=== PATIENT | male | born 1940 | race Caucasian/White ===

== ENCOUNTER 2019-05-26 10:59 | Day surgery (SDC) | payer OTHER ==
[~2019-05-26 10:59] MED LIST: CHONDR SU A NA/HYALUR INTRAOC KIT (SURGICARE) ONE; DORZOLAMIDE HCL 2%/TIMOLOL MALEAT 0.5% OPH SOLN 10 ML OD PRN; EPINEPHRINE INJ/PF 1 MG/1 ML AMPULE ONE; KETOROLAC TROMETHAMINE 0.45% 4 DROP/0.4 ML DROPERETTE OD PRN; LIDOCAINE 1%/PHENYLEPHRINE 1.5% 1 ML VIAL ONE
[2019-05-26] MEDS: BESIFLOXACIN HCL 0.6% OPH SUSP 5 ML BOTTLE OD PRN ×3 (11:35→12:44)
[2019-05-26] MEDS: CYCLOPENTOLATE 0.2%/PHENYLEPHRINE 1% OPH SOLN 2 ML OD PRN ×3 (11:35→11:55)
[2019-05-26] MEDS: TROPICAMIDE 1% OPH SOLN 3 ML OD PRN ×3 (11:35→11:55)
[2019-05-26] MEDS: TETRACAINE HCL 0.5% OPH SOLN 4 ML OD PRN ×3 (11:35→12:19)
[2019-05-26] MEDS ORDERED: MIDAZOLAM 2 MG/2 ML INJ ONE (12:00)
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
== END 2019-05-26 13:33 | disposition home or self-care (01) ==
LOC: SC 10:59
PROVIDERS: ATTEND Internal Medicine
DX: H25.11 Age-related nuclear cataract, right eye (principal); H57.03 Miosis; Z96.1 Presence of intraocular lens; I10 Essential (primary) hypertension; Z79.01 Long term (current) use of anticoagulants; Z79.899 Other long term (current) drug therapy
CPT/HCPCS: 00142; 66984; V2632; J2250; J3490 ×2; A9270; J0171; J2370; 142

== ENCOUNTER 2019-11-23 09:38 | Inpatient (IN) | payer OTHER, MEDICARE ==
[2019-11-23 10:18] LABS: VENOUS BLOOD BASE EXCESS -4.3 mmol/L; VENOUS BLOOD HCO3 22.2 mmol/L (20-32); VENOUS BLOOD PCO2 46.1 mmHg (35-63); VENOUS BLOOD PH 7.3 (7.30-7.42)
[2019-11-23 10:32] LABS: ABSOLUTE BASOPHILS # (AUTO) 0.1 10^3/uL (0.0-0.2); ABSOLUTE LYMPHOCYTES (AUTO) 1.7 10^3/uL (0.5-4.7); ABSOLUTE MONOCYTES (AUTO) 0.6 10^3/uL (0.1-1.4); ABSOLUTE NEUT (AUTO) 10.5 10^3/uL (1.7-8.2); BASOPHILS % (AUTO) 1.1 % (0-2); EOSINOPHILS % (AUTO) 0.3 % (0-6); HEMATOCRIT 24.2 % (37.9-51.0); HEMOGLOBIN 8.3 g/dL (13.5-17.0); LYMPHOCYTES % (AUTO) 13.4 % (13-45); MEAN CORPUSCULAR HEMOGLOBIN 30.8 pg (27.0-33.4); MEAN CORPUSCULAR HGB CONC 34.5 g/dL (32.0-36.0); MEAN CORPUSCULAR VOLUME 89 fl (80-97); MONOCYTES % (AUTO) 4.6 % (3-13); PLATELET COUNT 249 10^3/uL (150-450); RED CELL DISTRIBUTION WIDTH 14.2 % (11.5-14.0); SEGMENTED NEUTROPHILS % (AUTO) 80.6 % (42-78); TOTAL CELLS COUNTED % (AUTO) 100 %
[2019-11-23 10:35] LABS: ALBUMIN 3.1 g/dL (3.5-5.0); ALKALINE PHOSPHATASE 44 U/L (38-126); ANION GAP 12 (5-19); ASPARTATE AMINO TRANSFERASE 19 U/L (17-59); BILIRUBIN,DIRECT 0.2 mg/dL (0.0-0.4); BILIRUBIN,TOTAL 1.1 mg/dL (0.2-1.3); BLOOD UREA NITROGEN 82 mg/dL (7-20); CARBON DIOXIDE 22 mmol/L (22-30); CHLORIDE 102 mmol/L (98-107); GLUCOSE 174 mg/dL (75-110); POTASSIUM 4.5 mmol/L (3.6-5.0); TOTAL PROTEIN 6.1 g/dL (6.3-8.2)
[2019-11-23 11:07] LABS: INTERNATIONAL RATION (INR) 5.71; PROTHROMBIN TIME 53.2 SEC (11.4-15.4)
--- NOTE | 2019-11-23 11:19 | ER Document Report ---
ED General - General Chief Complaint: Rectal Bleeding Stated Complaint: POSSIBLE SEPSIS Time Seen by Provider: 11/23/19 10:02 Primary Care Provider: NICHELLE VERMA MD [Primary Care Provider] - Follow up as needed Mode of Arrival: Medic Information source: Patient, Relative Notes: Patient is a 79-year-old male presenting to the emergency department chief complaint of lightheaded and dizziness. Patient states that he has been progressively worsening over several days and states that his stool has been dark/black for approximately 2 weeks. At time of presentation patient is alert and oriented answering questions appropriately. Patient is pale and has a baseline rate on monitor of atrial fibrillation rate of 88 bpm. Family states that the patient has been getting weaker for several days but pretty much keeps to himself they also state that he has not eaten in a couple of days. There is no report of obvious sick contacts no travel history and no trauma history. TRAVEL OUTSIDE OF THE [place] IN LAST 30 DAYS: No - HPI Onset: Last week Onset/Duration: Gradual, Worse Quality of pain: Achy Severity: Mild Pain Level: 1 Associated symptoms: Nausea, Shortness of breath, Weakness Exacerbated by: Movement, Walking Relieved by: Denies Similar symptoms previously: Yes Recently seen / treated by doctor: No - Related Data Allergies/Adverse Reactions: No Known Allergies Allergy (Verified 11/23/19 09:45) Past Medical History - General Information source: Patient, Relative - Social History Smoking Status: Never Smoker Frequency of alcohol use: None Drug Abuse: None Lives with: Family Family History: Reviewed & Not Pertinent Patient has suicidal ideation: Yes Patient has homicidal ideation: No - Past Medical History Cardiac Medical History: Reports: Hx Hypertension Denies: Hx Coronary Artery Disease, Hx Heart Attack Pulmonary Medical History: Denies: Hx Asthma, Hx Bronchitis, Hx COPD, Hx Pneumonia Neurological Medical History: Denies: Hx Cerebrovascular Accident, Hx Seizures GI Medical History: Denies: Hx Hepatitis, Hx Hiatal Hernia, Hx Ulcer Musculoskeletal Medical History: Reports Hx Arthritis - Knees, hands Infectious Medical History: Denies: Hx Hepatitis Past Surgical History: Reports: Hx Orthopedic Surgery - carpel tunnel. Denies: Hx Open Heart Surgery, Hx Pacemaker - Immunizations Hx Diphtheria, Pertussis, Tetanus Vaccination: - Unsure Review of Systems - Review of Systems Notes: REVIEW OF SYSTEMS: CONSTITUTIONAL : Per HPI EENT: Denies eye, ear, throat, or mouth pain or symptoms. Denies nasal or sinus congestion. CARDIOVASCULAR: Denies chest pain. RESPIRATORY: Denies cough, cold, or chest congestion. Denies shortness of breath, difficulty breathing, or wheezing. GASTROINTESTINAL: Per HPI GENITOURINARY: Denies difficulty urinating, painful urination, burning, frequency, or blood in urine. MUSCULOSKELETAL: Denies neck or back pain or joint pain or swelling. SKIN: Per HPI HEMATOLOGIC : Denies easy bruising or bleeding. NEUROLOGICAL: Denies altered mental status or loss of consciousness. Denies headache. Denies weakness or paralysis or loss of use of either side. Denies problems with gait or speech. Denies sensory or motor loss. PSYCHIATRIC: Denies suicidal or homicidal ideations 10 Systems are negative unless otherwise specified above Physical Exam - Vital signs Vitals: Resp Pulse Ox 20 100 11/23/19 09:44 11/23/19 09:44 - Notes Notes: PHYSICAL EXAMINATION: GENERAL: Patient is a pleasant 79-year-old male in no acute distress HEAD: Atraumatic, normocephalic. EYES: Pupils equal round and reactive to light, extraocular movements intact, sclera anicteric, conjunctiva are normal. ENT: nares patent, oropharynx clear without exudates. Dry mucous membranes. NECK: Normal range of motion, supple without lymphadenopathy, no appreciable JVD LUNGS: Lungs clear to auscultation bilaterally and equal. No wheezes rales or rhonchi. Poor excursion HEART: Regular rate however atrial fibrillation ABDOMEN: Soft, nontender, normal bowel sounds. No guarding, no rebound. No masses appreciated. EXTREMITIES: Active full range of motion, no pitting or edema. No cyanosis. 2+ pulses x4 NEUROLOGICAL: No focal neurological deficits. Moves all extremities spontaneously and on command. SKIN: Warm, Dry, and intact. Normal turgor, no rashes or lesions noted. Patient is pallorous Course - Re-evaluation Re-evalutation: 11/23/19 12:52 Patient has been maintained on a mixing picker tender while in emergency department. Patient is remained stable without any signs of decompensation. At time of presentation patient was initially evaluated and labs EKG and radiologic studies were initiated. These studies have been reviewed by me patient has received initially 1 L bolus normal saline and will receive a second. He is receiving Protonix IV per protocol. Because of the elevated INR patient will be given 10 units of vitamin K subcu. I have spoken with the family they are aware and agreeable with admission. I spoke with general surgery who will consult secondary to upper GI bleed. Hospitalists have been consulted and are agreeable with admission. - Vital Signs Vital signs: Temp Pulse Resp BP Pulse Ox 97.2 F 93 14 107/63 100 11/23/19 09:47 11/23/19 09:47 11/23/19 11:31 11/23/19 11:31 11/23/19 11:31 - Laboratory Result Diagrams: 11/23/19 09:45 11/23/19 09:45 Laboratory results interpreted by me: 11/23/19 11/23/19 11/23/19 09:45 09:45 09:45 WBC 13.0 H RBC 2.70 L Hgb 8.3 L Hct 24.2 L RDW 14.2 H Absolute Neuts (auto) 10.5 H Seg Neutrophils % 80.6 H PT INR Sodium 136.3 L BUN 82 H Creatinine 1.91 H Est GFR ( Amer) 41 L Est GFR (MDRD) Non-Af 34 L Glucose 174 H Lactic Acid 3.0 H Total Protein 6.1 L Albumin 3.1 L 11/23/19 10:47 WBC RBC Hgb Hct RDW Absolute Neuts (auto) Seg Neutrophils % PT 53.2 H* INR 5.71 H* Sodium BUN Creatinine Est GFR ( Amer) Est GFR (MDRD) Non-Af Glucose Lactic Acid Total Protein Albumin - Diagnostic Test Radiology reviewed: Reports reviewed - EKG Interpretation by Me Rate: Normal Rhythm: Arrthymia When compared to previous EKG there are: No significant change Critical Care Note - Critical Care Note Total time excluding time spent on procedures (mins): 40 Comments: Please allow 40 minutes of critical care time exclusive of separately billable procedures for multiple re-evaluations, medical management, consultation with patient family surgical list and hospitalist in care for this critically ill patient. Discharge - Discharge Clinical Impression: Upper GI bleed, Supratherapeutic INR, Generalized weakness, Renal insufficiency Anemia Qualifiers: Anemia type: iron deficiency Iron deficiency anemia type: chronic blood loss Qualified Code(s): D50.0 - Iron deficiency anemia secondary to blood loss (chronic) Atrial fibrillation Qualifiers: Atrial fibrillation type: longstanding persistent Qualified Code(s): I48.11 - Longstanding persistent atrial fibrillation Condition: Fair Disposition: ADMITTED INPATIENT Admitting Provider: Darrell (Hospitalist) Unit Admitted: IMCU Referrals: NICHELLE VERMA MD [Primary Care Provider] - Follow up as needed
[2019-11-23] MEDS ORDERED: PHYTONADIONE INJ 10 MG/1 ML AMPULE SUBCUT ONE (12:00)
--- NOTE | 2019-11-23 12:01 | RADIOLOGY REPORT (SQ) ---
EXAM DESCRIPTION: CHEST SINGLE VIEW COMPLETED DATE/TIME: 11/23/2019 11:45 am REASON FOR STUDY: sob COMPARISON: 06/28/2015 EXAM PARAMETERS: NUMBER OF VIEWS: One view. TECHNIQUE: Single frontal radiographic view of the chest acquired. RADIATION DOSE: NA LIMITATIONS: None. FINDINGS: LUNGS AND PLEURA: No opacities, masses or pneumothorax. No pleural effusion. MEDIASTINUM AND HILAR STRUCTURES: No masses. Contour normal. HEART AND VASCULAR STRUCTURES: Heart normal in size. Normal vasculature. BONES: No acute findings. HARDWARE: None in the chest. OTHER: No other significant finding. IMPRESSION: NO ACUTE RADIOGRAPHIC FINDING IN THE CHEST. TECHNICAL DOCUMENTATION: JOB ID: [id number] 2010 [employer]- All Rights Reserved Reading location - IP/workstation name: [email or web address]
[2019-11-23] MEDS ORDERED: PANTOPRAZOLE SODIUM 40 MG VIAL IV PRN (12:02)
[2019-11-23] MEDS ORDERED: PANTOPRAZOLE SODIUM 40 MG VIAL IV ONE (12:02)
[2019-11-23] MEDS ORDERED: NORMAL SALINE 1000 ML 1,000 ML IV ONE ×2 (12:04→14:24)
[2019-11-23] MEDS ORDERED: ACETAMINOPHEN 325 MG TABLET PO PRN (14:58)
[2019-11-23] MEDS ORDERED: DEXTROSE 40% GEL 15 GM TUBE PO PRN ×2 (14:58)
[2019-11-23] MEDS ORDERED: PROMETHAZINE HCL INJ 25 MG/1 ML VIAL IV PRN (14:58)
[2019-11-23] MEDS ORDERED: MAGNESIUM HYDROXIDE SUSP 30 ML UDCUP PO PRN (14:58)
[2019-11-23] MEDS ORDERED: TEMAZEPAM 7.5 MG CAPSULE PO PRN (14:58)
[2019-11-23] MEDS ORDERED: DEXTROSE 50%-WATER 25 GM/50 ML DISP.SYRIN IV PRN ×2 (14:58)
[2019-11-23] MEDS ORDERED: GLUCAGON,HUMAN RECOMB 1 MG INJ SUBCUT PRN (14:58)
[2019-11-23] MEDS ORDERED: ONDANSETRON HCL INJ/PF 4 MG/2 ML SDV IV PRN (14:58)
[2019-11-23] MEDS ORDERED: IPRATROPIUM/ALBUTEROL 0.5-2.5 MG/3 ML AMPUL NEB PRN (14:58)
[2019-11-23] MEDS ORDERED: OXYCODONE-ACETAMINOPHEN 5-325 MG TABLET PO PRN (14:58)
[2019-11-23] MEDS ORDERED: HYDRALAZINE HCL INJ/PF 20 MG/1 ML SDV IV PRN (15:06)
[2019-11-23] MEDS ORDERED: METOPROLOL TARTRATE PF/INJ 5 MG/5 ML SDV IV PRN (15:07)
--- NOTE | 2019-11-23 15:26 | PDOC H&P ---
History of Present Illness Admission Date/PCP: 11/23/19 13:05 NICHELLE VERMA MD History of Present Illness: JOSETTE EISENBERG is a 79 year old male past medical history of hypertension, atrial fibrillation on Coumadin, brought to ED by EMS after found in bathroom by family noted to be too weak to get up. Patient is stating that he has noted greenish stool for the last several months which has progressively getting darker and for the last 2 weeks he has noticed that his bowel movements are me lanotic and also noted that he is getting progressively weak and in the last several days he has been having very low appetite, low p.o. intake, abdominal fullness, dry heaves and nausea. Patient is stating that today he was having dry heaves and felt like he was vomiting, went to the restroom and he felt dizzy and lightheaded and sat on the door and was feeling too weak to get up. Patient denies loss of consciousness or any trauma, and remembers everything pre-and post incident. In ED he was found to be hypotensive, tachycardic, with low hemoglobin supratherapeutic INR and guaiac positive stool. Hospital was consulted for admission. Past Medical History Cardiac Medical History: Reports: Hypertension Denies: Coronary Artery Disease, Myocardial Infarction Pulmonary Medical History: Denies: Asthma, Bronchitis, Chronic Obstructive Pulmonary Disease (COPD), Pneumonia Neurological Medical History: Denies: Seizures GI Medical History: Denies: Hepatitis, Hiatal Hernia Musculoskeltal Medical History: Reports: Arthritis - Knees, hands Hematology: Denies: Anemia, Sickle Cell Disease Past Surgical History Past Surgical History: Reports: Orthopedic Surgery - carpel tunnel Denies: Pacemaker Social History Lives with: Family Smoking Status: Never Smoker Family History Family History: Reviewed & Not Pertinent Parental Family History Reviewed: Yes Children Family History Reviewed: Yes Sibling(s) Family History Reviewed.: Yes Medication/Allergy Home Medications: Naproxen Sodium [Aleve] 660 mg PO DAILY 01/31/16 Losartan/Hydrochlorothiazide [Hyzaar 100-12.5 Tablet] 1 each PO DAILY 04/15/19 Warfarin Sodium 2 mg PO QHS 04/15/19 Atorvastatin Calcium [Lipitor 10 mg Tablet] 10 mg PO QHS 11/23/19 Allergies/Adverse Reactions: No Known Allergies Allergy (Verified 11/23/19 09:45) Review of Systems Review of Systems: as per hpi Physical Exam Vital Signs: Temp Pulse Resp BP Pulse Ox 97.2 F 93 27 H 152/74 H 98 11/23/19 09:47 11/23/19 09:47 11/23/19 14:31 11/23/19 14:31 11/23/19 14:31 Intake & Output 11/22/19 11/23/19 11/24/19 06:59 06:59 06:59 Intake Total 1000 Balance 1000 Weight 111.5 kg General appearance: PRESENT: obese, other - Pale. Head exam: PRESENT: atraumatic, normocephalic Respiratory exam: PRESENT: clear to auscultation trent. ABSENT: rales, rhonchi, wheezes Cardiovascular exam: PRESENT: irregular rhythm, tachycardia. ABSENT: diastolic murmur, rubs, systolic murmur GI/Abdominal exam: PRESENT: normal bowel sounds, soft. ABSENT: distended, guarding, mass, organolmegaly, rebound, tenderness Neurological exam: PRESENT: alert, awake, oriented to person, oriented to place, oriented to time, oriented to situation, CN II-XII grossly intact. ABSENT: motor sensory deficit Skin exam: PRESENT: pallor Results Laboratory Results: 11/23/19 09:45 11/23/19 09:45 11/23/19 11/23/19 11/23/19 09:45 09:45 09:45 WBC 13.0 H RBC 2.70 L Hgb 8.3 L Hct 24.2 L MCV 89 MCH 30.8 MCHC 34.5 RDW 14.2 H Plt Count 249 Seg Neutrophils % 80.6 H VBG pH 7.30 VBG pCO2 46.1 VBG HCO3 22.2 VBG Base Excess -4.3 Sodium 136.3 L Potassium 4.5 Chloride 102 Carbon Dioxide 22 Anion Gap 12 BUN 82 H Creatinine 1.91 H Est GFR ( Amer) 41 L Glucose 174 H Lactic Acid Calcium 9.0 Total Bilirubin 1.1 AST 19 Alkaline Phosphatase 44 Total Protein 6.1 L Albumin 3.1 L Blood Type Antibody Screen 11/23/19 11/23/19 11/23/19 09:45 09:45 12:50 WBC RBC Hgb Hct MCV MCH MCHC RDW Plt Count Seg Neutrophils % VBG pH VBG pCO2 VBG HCO3 VBG Base Excess Sodium Potassium Chloride Carbon Dioxide Anion Gap BUN Creatinine Est GFR ( Amer) Glucose Lactic Acid 3.0 H 2.5 H Calcium Total Bilirubin AST Alkaline Phosphatase Total Protein Albumin Blood Type O POSITIVE Antibody Screen NEGATIVE 11/23/19 09:45 Troponin I < 0.012 Impressions: Chest X-Ray 11/23/19 11:24 IMPRESSION: NO ACUTE RADIOGRAPHIC FINDING IN THE CHEST. Assessment and Plan - Diagnosis (1) Upper GI bleed Is this a current diagnosis for this admission?: Yes Plan: Denies any history of GI malignancy, GERD or gastric ulcers. Home medications are Coumadin and naproxen. This is likely due to Coumadin toxicity complicated by chronic NSAID use. Hemoglobin on admission 8.2. Actual hemoglobin might be even lower and falsely elevated elevated due to hemoconcentration due to dehydration. Will transfuse 2 PRBC. Admit to IMCU, monitor H&H, volume resuscitation guided by volume status, hold anticoagulants, avoid NSAIDs, supportive transfusions, vitamin K, PT/INR, consult gastroenterology for possible upper and lower GI endoscopy. (2) Anemia Qualifiers: Other causes of anemia: acute posthemorrhagic Is this a current diagnosis for this admission?: Yes Plan: Acute blood loss anemia most likely due to upper GI bleed. Plan of care as per #1. (3) Pre-syncope Is this a current diagnosis for this admission?: Yes Plan: Most likely due to severe anemia and volume depletion. Patient endorsing low p.o. intake and low appetite and progressive weakness for the last several days. Denies any chest pain, palpitation or any shortness of breath. Denies any loss of consciousness, any trauma or focal neurological deficits. Troponins negative. EKG no acute changes. Admit to telemetry, volume resuscitation, monitor vitals, fall, seizure and aspiration precautions. (4) Hypotension Qualifiers: Hypotension type: orthostatic hypotension Qualified Code(s): I95.1 - Orthostatic hypotension Is this a current diagnosis for this admission?: Yes Plan: Orthostatic hypotension most likely due to low p.o. intake and volume depletion. Admit to telemetry, volume resuscitation guided by volume status, monitor vitals. (5) Acute kidney injury superimposed on CKD Is this a current diagnosis for this admission?: Yes Plan: Prerenal. Most likely low p.o. intake complicated by NSAID use. Creatinine on admission 1.91. Baseline creatinine 1.3. Cautious volume resuscitation guided by volume status. Avoid nephrotoxic meds. Monitor electrolytes and volume status. Replace electrolytes as needed. BMP tomorrow. (6) Atrial fibrillation Qualifiers: Atrial fibrillation type: longstanding persistent Qualified Code(s): I48.11 - Longstanding persistent atrial fibrillation Is this a current diagnosis for this admission?: Yes Plan: History of chronic persistent A. fib. Anticoagulated with Coumadin. Not on beta-blockers. Hold anticoagulation due to acute GI bleed. Low-dose beta-ally uptitrate as tolerated. I have discussed risk and benefit of long-term anticoagulation with patient and his who both agreed to hold Coumadin until patient is discharged and seen by his PCP as outpatient. (7) Generalized weakness Is this a current diagnosis for this admission?: Yes Plan: Most likely due to anemia and low p.o. intake. Plan as per above. (8) Supratherapeutic INR Is this a current diagnosis for this admission?: Yes Plan: INR on admission 5.71. 1 dose of vitamin K in ED. Admit to telemetry. Monitor for bleeding. Daily INR. Hold anticoagulation. (9) Lactic acidosis Is this a current diagnosis for this admission?: Yes Plan: Likely due to hypotension caused by low p.o. intake and GI bleed starvation ketosis No sign of active infection sepsis or SIRS. Trend lactic acid. Aggressive volume resuscitation guided by volume status. Indication for IV antibiotics at this moment.
[2019-11-23] MEDS ORDERED: NORMAL SALINE 250 ML IV PRN ×2 (15:27)
[2019-11-23] MEDS: DEXTROSE 5%-NORMAL SALINE 1,000 ML IV PRN ×2 (16:13→23:30)
--- NOTE | 2019-11-23 18:23 | EKG REPORT ---
SEVERITY:- ABNORMAL ECG - ATRIAL FIBRILLATION IVCD, CONSIDER ATYPICAL RBBB BORDERLINE ST DEPRESSION, LATERAL LEADS : Confirmed by: Shasta Erazo MD 23-Nov-2019 18:22:49
[2019-11-24] MEDS ORDERED: INFLUENZA QUAD (6MOS+) 2019-20 VAC 0.5 ML SYR IM ONE (00:58)
[2019-11-24] MEDS: METOPROLOL TARTRATE 25 MG TABLET PO SCH ×3 (02:00→21:02)
[2019-11-24] MEDS: ATORVASTATIN CALCIUM 10 MG TABLET PO SCH ×2 (02:02→21:03)
[2019-11-24] MEDS: DEXTROSE 5%-NORMAL SALINE 1,000 ML IV PRN ×2 (03:55→11:06)
[2019-11-24 05:13] LABS: HEMATOCRIT 20.5 % (37.9-51.0); MEAN CORPUSCULAR HEMOGLOBIN 31.7 pg (27.0-33.4); MEAN CORPUSCULAR HGB CONC 35.5 g/dL (32.0-36.0); MEAN CORPUSCULAR VOLUME 89 fl (80-97); PLATELET COUNT 149 10^3/uL (150-450); RED BLOOD COUNT 2.29 10^6/uL (4.35-5.55); RED CELL DISTRIBUTION WIDTH 14.6 % (11.5-14.0); WHITE BLOOD COUNT 8.5 10^3/uL (4.0-10.5)
[2019-11-24 05:17] LABS: HEMOGLOBIN 7.3 g/dL (13.5-17.0)
[2019-11-24 05:22] LABS: INTERNATIONAL RATION (INR) 4.31; PROTHROMBIN TIME 42.5 SEC (11.4-15.4)
[2019-11-24 05:29] LABS: ALBUMIN 2.3 g/dL (3.5-5.0); ALKALINE PHOSPHATASE 26 U/L (38-126); ANION GAP 5 (5-19); ASPARTATE AMINO TRANSFERASE 14 U/L (17-59); BILIRUBIN,DIRECT 0.1 mg/dL (0.0-0.4); BLOOD UREA NITROGEN 69 mg/dL (7-20); CALCIUM 7.6 mg/dL (8.4-10.2); CARBON DIOXIDE 21 mmol/L (22-30); CHLORIDE 113 mmol/L (98-107); GLUCOSE 116 mg/dL (75-110); POTASSIUM 4.1 mmol/L (3.6-5.0); TOTAL PROTEIN 4.3 g/dL (6.3-8.2)
--- NOTE | 2019-11-24 06:06 | PDOC CONSULTATION ---
Consultation Consult Date: 11/24/19 Provider Consulted: SURGICAL SURGICALIST Consult reason:: GI bleeding History of Present Illness Admission Date/PCP: 11/23/19 13:05 NICHELLE VERMA MD History of Present Illness: JOSETTE EISENBERG is a 79 year old male seen in consultation at the request of the hospitalist service. This patient takes Coumadin at home for anticoagulation. Today he presents with weakness, dizziness, fatigue, shortness of breath, melanotic stools, orthostasis, and a supratherapeutic INR. Upon my evaluation, the patient appears somewhat confused. He is a very poor historian. He denies any abdominal pain or discomfort. He denies hematemesis or hematochezia. He does report melena. The patient reports that he had "scope tests" done 2 months ago here in [place]. I do not have these records to review. The patient began having symptoms yesterday at home. He presented to the emergency department for evaluation, where he was found to be anemic, and his INR supratherapeutic. The patient was admitted to the hospital and given vitamin K. Nothing makes his symptoms better or worse. He denies any overt chest pain, headache, blurry vision. The patient does take Aleve every day for back and leg pain. He denies use of steroids, nicotine, alcohol, or large amounts of caffeine. Past Medical History Cardiac Medical History: Reports: Hypertension Denies: Coronary Artery Disease, Myocardial Infarction Pulmonary Medical History: Denies: Asthma, Bronchitis, Chronic Obstructive Pulmonary Disease (COPD), Pneumonia Neurological Medical History: Denies: Seizures GI Medical History: Denies: Hepatitis, Hiatal Hernia Musculoskeltal Medical History: Reports: Arthritis - Knees, hands Hematology: Denies: Anemia, Sickle Cell Disease Past Surgical History Past Surgical History: Reports: Orthopedic Surgery - carpel tunnel Denies: Pacemaker Social History Lives with: Family Smoking Status: Never Smoker Hx Recreational Drug Use: No Hx Prescription Drug Abuse: No Family History Family History: Reviewed & Not Pertinent Parental Family History Reviewed: Yes Children Family History Reviewed: Yes Sibling(s) Family History Reviewed.: Yes Medication/Allergy Home Medications: Naproxen Sodium [Aleve] 660 mg PO DAILY 01/31/16 Losartan/Hydrochlorothiazide [Hyzaar 100-12.5 Tablet] 1 each PO DAILY 04/15/19 Warfarin Sodium 2 mg PO QHS 04/15/19 Atorvastatin Calcium [Lipitor 10 mg Tablet] 10 mg PO QHS 11/23/19 Allergies/Adverse Reactions: No Known Allergies Allergy (Verified 11/23/19 09:45) Review of Systems Constitutional: PRESENT: fatigue, weakness. ABSENT: anorexia Eyes: ABSENT: visual disturbances Ears: ABSENT: hearing changes Nose, Mouth, and Throat: ABSENT: mouth pain, sore throat Cardiovascular: ABSENT: chest pain Respiratory: PRESENT: dyspnea - Mild. ABSENT: cough Gastrointestinal: PRESENT: melena. ABSENT: abdominal pain, bloating, hematemesi s, hematochezia, nausea, vomiting Genitourinary: ABSENT: dysuria Musculoskeletal: PRESENT: back pain Integumentary: ABSENT: pruritus, rash Neurological: PRESENT: weakness Psychiatric: ABSENT: anxiety, depression Endocrine: ABSENT: cold intolerance, heat intolerance Hematologic/Lymphatic: PRESENT: easy bleeding, easy bruising Physical Exam Vital Signs: Temp Pulse Resp BP Pulse Ox 97.8 F 100 20 112/49 L 100 11/23/19 23:37 11/23/19 23:37 11/23/19 23:37 11/23/19 23:37 11/23/19 23:37 Intake & Output 11/22/19 11/23/19 11/24/19 06:59 06:59 06:59 Intake Total 2874 Balance 2874 Weight 111.5 kg General appearance: PRESENT: cooperative, obese, other - Pale appearing Head exam: PRESENT: atraumatic, normocephalic Eye exam: PRESENT: EOMI, PERRLA. ABSENT: scleral icterus Mouth exam: PRESENT: moist, neck supple Neck exam: ABSENT: meningismus, tenderness, thyromegaly, tracheal deviation Respiratory exam: PRESENT: unlabored. ABSENT: chest wall tenderness, tachypnea, wheezes Cardiovascular exam: ABSENT: tachycardia Pulses: PRESENT: normal radial pulses GI/Abdominal exam: PRESENT: soft. ABSENT: distended, guarding, rigid, tenderness Rectal exam: PRESENT: deferred Extremities exam: ABSENT: clubbing Musculoskeletal exam: ABSENT: deformity Neurological exam: PRESENT: alert, awake, other - Appears mildly confused. Has difficulty with specifics related to his medical care, locations, people's names. Psychiatric exam: ABSENT: agitated, anxious, depressed Focused psych exam: ABSENT: delusional Skin exam: PRESENT: pallor. ABSENT: cyanosis, erythema, jaundice Results Laboratory Results: 11/23/19 09:45 11/23/19 09:45 11/23/19 11/23/19 11/23/19 09:45 09:45 09:45 WBC 13.0 H RBC 2.70 L Hgb 8.3 L Hct 24.2 L MCV 89 MCH 30.8 MCHC 34.5 RDW 14.2 H Plt Count 249 Seg Neutrophils % 80.6 H VBG pH 7.30 VBG pCO2 46.1 VBG HCO3 22.2 VBG Base Excess -4.3 Sodium 136.3 L Potassium 4.5 Chloride 102 Carbon Dioxide 22 Anion Gap 12 BUN 82 H Creatinine 1.91 H Est GFR ( Amer) 41 L Glucose 174 H Lactic Acid Calcium 9.0 Total Bilirubin 1.1 AST 19 Alkaline Phosphatase 44 Total Protein 6.1 L Albumin 3.1 L Blood Type Antibody Screen 11/23/19 11/23/19 11/23/19 09:45 09:45 12:50 WBC RBC Hgb Hct MCV MCH MCHC RDW Plt Count Seg Neutrophils % VBG pH VBG pCO2 VBG HCO3 VBG Base Excess Sodium Potassium Chloride Carbon Dioxide Anion Gap BUN Creatinine Est GFR ( Amer) Glucose Lactic Acid 3.0 H 2.5 H Calcium Total Bilirubin AST Alkaline Phosphatase Total Protein Albumin Blood Type O POSITIVE Antibody Screen NEGATIVE 11/23/19 16:14 WBC RBC Hgb Hct MCV MCH MCHC RDW Plt Count Seg Neutrophils % VBG pH VBG pCO2 VBG HCO3 VBG Base Excess Sodium Potassium Chloride Carbon Dioxide Anion Gap BUN Creatinine Est GFR ( Amer) Glucose Lactic Acid 1.8 Calcium Total Bilirubin AST Alkaline Phosphatase Total Protein Albumin Blood Type Antibody Screen 11/23/19 09:45 Troponin I < 0.012 Impressions: Chest X-Ray 11/23/19 11:24 IMPRESSION: NO ACUTE RADIOGRAPHIC FINDING IN THE CHEST. Assessment & Plan - Diagnosis (1) GI bleeding Qualifiers: GI bleed type/associated pathology: melena Qualified Code(s): K92.1 - Melena Is this a current diagnosis for this admission?: Yes - Plan Summary Plan Summary: This is a 79-year-old male with GI bleeding. His INR is supratherapeutic. He does take Aleve every day. It is likely that his source of bleeding is in his upper GI tract, however with a supratherapeutic INR it could be anywhere from mouth to anus. The patient denies hematochezia. He was given vitamin K yesterday, however if life-threatening bleeding occurs, FFP is a much faster alternative. The patient reports having "scope tests" 2 months ago here in [place]. I will have the nursing staff investigate this and request these records. If the patient had a normal colonoscopy several months ago, it would not be beneficial to repeat his colonoscopy in such a short timeframe. I recommend reversal of his supratherapeutic INR first. If this fails to stop his bleeding, therapeutic upper endoscopy can be performed. Stop NSAIDs. Start PPI and Carafate. Surgery will follow.
[2019-11-24] MEDS ORDERED: NORMAL SALINE 250 ML IV PRN ×2 (08:33)
--- NOTE | 2019-11-24 10:29 | PDOC PROGRESS REPORT ---
Subjective Progress Note for:: 11/24/19 Subjective:: JOSETTE EISENBERG is a 79 year old male past medical history of hypertension, atrial fibrillation on Coumadin, brought to ED by EMS after found in bathroom by family noted to be too weak to get up. Patient is stating that he has noted greenish stool for the last several months which has progressively getting darker and for the last 2 weeks he has noticed that his bowel movements are melanotic and also noted that he is getting progressively weak and in the last several days he has been having very low appetite, low p.o. intake, abdominal fullness, dry heaves and nausea. Patient is stating that today he was having dry heaves and felt like he was vomiting, went to the restroom and he felt dizzy and lightheaded and sat on the door and was feeling too weak to get up. Patient denies loss of consciousness or any trauma, and remembers everything pre-and post incident. In ED he was found to be hypotensive, tachycardic, with low hemoglobin supratherapeutic INR and guaiac positive stool. Hospital was consulted for admission. 11/24/2019. No acute events overnight. Follow-up hemoglobin noted to be dropping however patient has not had any bowel movement and I do not believe if he is acutely bleeding. Patient is stating that he is feeling weak otherwise denies any fever, chills, nausea, vomiting, diarrhea and urinary symptoms. Patient's upper GI endoscopy is on hold given his elevated INR. Reason For Visit: UPPER GL BLEED, PRESYNCOPE, DEHYDRATION, ATRIAL Physical Exam Vital Signs: Temp Pulse Resp BP Pulse Ox 98.1 F 97 18 122/54 L 100 11/24/19 09:48 11/24/19 09:48 11/24/19 09:48 11/24/19 09:48 11/24/19 09:48 Intake & Output 11/23/19 11/24/19 11/25/19 06:59 06:59 06:59 Intake Total 4004 350 Output Total 1060 Balance 2944 350 Weight 108.8 kg General appearance: PRESENT: no acute distress, well-developed, well-nourished Head exam: PRESENT: atraumatic, normocephalic Respiratory exam: PRESENT: clear to auscultation trent. ABSENT: rales, rhonchi, wheezes Cardiovascular exam: PRESENT: irregular rhythm. ABSENT: diastolic murmur, rubs, systolic murmur GI/Abdominal exam: PRESENT: normal bowel sounds, soft. ABSENT: distended, guarding, mass, organolmegaly, rebound, tenderness Neurological exam: PRESENT: alert, awake, oriented to person, oriented to place, oriented to time, oriented to situation, CN II-XII grossly intact. ABSENT: motor sensory deficit Results Laboratory Results: 11/24/19 04:43 11/24/19 04:43 11/23/19 11/23/19 11/23/19 09:45 09:45 09:45 WBC 13.0 H RBC 2.70 L Hgb 8.3 L Hct 24.2 L MCV 89 MCH 30.8 MCHC 34.5 RDW 14.2 H Plt Count 249 Seg Neutrophils % 80.6 H Sodium 136.3 L Potassium 4.5 Chloride 102 Carbon Dioxide 22 Anion Gap 12 BUN 82 H Creatinine 1.91 H Est GFR ( Amer) 41 L Glucose 174 H Lactic Acid 3.0 H Calcium 9.0 Total Bilirubin 1.1 AST 19 Alkaline Phosphatase 44 Total Protein 6.1 L Albumin 3.1 L Blood Type Antibody Screen 11/23/19 11/23/19 11/23/19 09:45 12:50 16:14 WBC RBC Hgb Hct MCV MCH MCHC RDW Plt Count Seg Neutrophils % Sodium Potassium Chloride Carbon Dioxide Anion Gap BUN Creatinine Est GFR ( Amer) Glucose Lactic Acid 2.5 H 1.8 Calcium Total Bilirubin AST Alkaline Phosphatase Total Protein Albumin Blood Type O POSITIVE Antibody Screen NEGATIVE 11/24/19 11/24/19 04:43 04:43 WBC 8.5 RBC 2.29 L Hgb 7.3 L Hct 20.5 L MCV 89 MCH 31.7 MCHC 35.5 RDW 14.6 H Plt Count 149 L Seg Neutrophils % Sodium 139.3 Potassium 4.1 Chloride 113 H Carbon Dioxide 21 L Anion Gap 5 BUN 69 H Creatinine 1.47 H Est GFR ( Amer) 56 L Glucose 116 H Lactic Acid Calcium 7.6 L Total Bilirubin 2.0 H AST 14 L Alkaline Phosphatase 26 L Total Protein 4.3 L Albumin 2.3 L Blood Type Antibody Screen 11/23/19 09:45 Troponin I < 0.012 Impressions: Chest X-Ray 11/23/19 11:24 IMPRESSION: NO ACUTE RADIOGRAPHIC FINDING IN THE CHEST. Assessment and Plan - Diagnosis (1) Upper GI bleed Is this a current diagnosis for this admission?: Yes Plan: Denies any history of GI malignancy, GERD or gastric ulcers. Home medications are Coumadin and naproxen. This is likely due to Coumadin toxicity complicated by chronic NSAID use. Hemoglobin on admission 8.2. Hemoglobin has dropped to 7.3 this is likely due to hemodilution as he appeared to be very dehydrated on admission. Status post 2 PRBC transfusion on 11/23/2019. We will transfuse 2 more units and 1 unit of FFP. Received 10 mg of vitamin K on 11/23/2019. GI consulted. Upper GI endoscopy is on hold pending correction of INR. Continue monitor H&H, volume resuscitation guided by volume status, hold anticoagulants, avoid NSAIDs, supportive transfusions, PT/INR (2) Anemia Qualifiers: Other causes of anemia: acute posthemorrhagic Is this a current diagnosis for this admission?: Yes Plan: Acute blood loss anemia most likely due to upper GI bleed. Plan of care as per #1. (3) Pre-syncope Is this a current diagnosis for this admission?: Yes Plan: Denies any palpitation, lightheadedness, dizziness or syncope since admission. Most likely due to severe anemia and volume depletion. Patient endorsing low p.o. intake and low appetite and progressive weakness for the last several days. Denies any chest pain, palpitation or any shortness of breath. Denies any loss of consciousness, any trauma or focal neurological deficits. Troponins negative. EKG no acute changes. Continue to telemetry, volume resuscitation, monitor vitals, fall, seizure and aspiration precautions. (4) Hypotension Qualifiers: Hypotension type: orthostatic hypotension Qualified Code(s): I95.1 - Orthostatic hypotension Is this a current diagnosis for this admission?: Yes Plan: Normotensive. Euvolemic. Orthostatic hypotension most likely due to low p.o. intake and volume depletion. Continue telemetry, volume resuscitation guided by volume status, monitor vitals. (5) Acute kidney injury superimposed on CKD Is this a current diagnosis for this admission?: Yes Plan: Improving. Prerenal. Most likely low p.o. intake complicated by NSAID use. Creatinine on admission 1.91. Baseline creatinine 1.3. Cautious volume resuscitation guided by volume status. Avoid nephrotoxic meds. Monitor electrolytes and volume status. Replace electrolytes as needed. BMP tomorrow. (6) Atrial fibrillation Qualifiers: Atrial fibrillation type: longstanding persistent Qualified Code(s): I48.11 - Longstanding persistent atrial fibrillation Is this a current diagnosis for this admission?: Yes Plan: Rate controlled. Not anticoagulated. History of chronic persistent A. fib. Anticoagulated with Coumadin. Hold anticoagulation due to acute GI bleed. Low-dose beta-alyl uptitrate as tolerated. I have discussed risk and benefit of long-term anticoagulation with patient and his who both agreed to hold Coumadin until patient is discharged and seen by his PCP as outpatient. (7) Generalized weakness Is this a current diagnosis for this admission?: Yes Plan: Improving. Most likely due to anemia and low p.o. intake. Plan as per above. (8) Supratherapeutic INR Is this a current diagnosis for this admission?: Yes Plan: INR 4.7. INR on admission 5.71. Received 1 dose of vitamin K in the ED. We will give 1 unit of FFP. Continue monitor for bleeding. Daily INR. Hold anticoagulation. (9) Lactic acidosis Is this a current diagnosis for this admission?: Yes Plan: Resolved. ALT likely due to hypotension caused by low p.o. intake and GI bleed starvation ketosis No sign of active infection sepsis or SIRS. Continue volume resuscitation guided by volume status. Indication for IV antibiotics at this moment.
[2019-11-24] MEDS: SUCRALFATE 1 GM TABLET PO SCH ×3 (10:51→21:02)
[2019-11-24] MEDS: NORMAL SALINE 500 ML with OCTREOTIDE ACETATE 500 MCG IV PRN ×2 (17:32)
[2019-11-24] MEDS ORDERED: PANTOPRAZOLE SODIUM 80 MG in NORMAL SALINE 100 ML IV ONE (18:00)
[2019-11-24 18:14] LABS: HEMATOCRIT 24.7 % (37.9-51.0); HEMOGLOBIN 8.5 g/dL (13.5-17.0); INTERNATIONAL RATION (INR) 2.15; MEAN CORPUSCULAR HEMOGLOBIN 30.1 pg (27.0-33.4); MEAN CORPUSCULAR HGB CONC 34.3 g/dL (32.0-36.0); MEAN CORPUSCULAR VOLUME 88 fl (80-97); PLATELET COUNT 168 10^3/uL (150-450); PROTHROMBIN TIME 24.3 SEC (11.4-15.4); RED BLOOD COUNT 2.82 10^6/uL (4.35-5.55); WHITE BLOOD COUNT 12.4 10^3/uL (4.0-10.5)
[2019-11-24 18:40] LABS: ABSOLUTE LYMPHOCYTES# (MANUAL) 1.7 10^3/uL (0.5-4.7); ANISOCYTOSIS SLIGHT; BASOPHILS % (MANUAL) 1 % (0-2); EOSINOPHILS % (MANUAL) 2 % (0-6); LYMPHOCYTES % (MANUAL) 14 % (13-45); MONOCYTES % (MANUAL) 8 % (3-13); SEGMENTED NEUTROPHILS % (MAN) 75 % (42-78); TOTAL CELLS COUNTED 100
[2019-11-24 18:41] LABS: PLATELET COMMENT ADEQUATE; PLATELET GIANT PRESENT
[2019-11-24] MEDS: NORMAL SALINE 100 ML with PANTOPRAZOLE SODIUM 80 MG IV PRN ×2 (19:34)
[2019-11-24 22:33] LABS: HEMATOCRIT 22.1 % (37.9-51.0); MEAN CORPUSCULAR HGB CONC 35.3 g/dL (32.0-36.0); MEAN CORPUSCULAR VOLUME 88 fl (80-97); PLATELET COUNT 139 10^3/uL (150-450); RED BLOOD COUNT 2.52 10^6/uL (4.35-5.55); WHITE BLOOD COUNT 10.6 10^3/uL (4.0-10.5)
[2019-11-24 22:42] LABS: HEMOGLOBIN 7.8 g/dL (13.5-17.0)
[2019-11-24] MEDS ORDERED: FUROSEMIDE INJ/PF 20 MG/2 ML SDV IV ONE (23:15)
[2019-11-25] MEDS: NORMAL SALINE 100 ML with PANTOPRAZOLE SODIUM 80 MG IV PRN ×4 (05:24→13:17)
[2019-11-25] MEDS ORDERED: NORMAL SALINE 250 ML IV PRN (06:10)
[2019-11-25] MEDS ORDERED: DEXTROSE 40% GEL 15 GM TUBE PO PRN ×2 (06:11)
[2019-11-25] MEDS ORDERED: DEXTROSE 50%-WATER 25 GM/50 ML DISP.SYRIN IV PRN ×2 (06:11)
[2019-11-25] MEDS ORDERED: GLUCAGON,HUMAN RECOMB 1 MG INJ SUBCUT PRN (06:11)
[2019-11-25 06:43] LABS: INTERNATIONAL RATION (INR) 1.72; PROTHROMBIN TIME 20.4 SEC (11.4-15.4)
--- NOTE | 2019-11-25 09:37 | Progress Note ---
Provider Note Provider Note: Spoke with Dr. moreno"s office this morning. Patient had a colonoscopy in December 2018. Findings consistent with 2 small 4 mm polyps in the mid transverse colon that were cold snare removed. Other findings include hemorrhoids. No other findings were noted at the colonoscopy.
--- NOTE | 2019-11-25 09:38 | Progress Note ---
Provider Note Provider Note: Spoke with Dr. Puentes's office. Patient had a colonoscopy in December 2018. Only findings included 2 small 4 mm polyps in the mid transverse colon that were removed with cold forceps. Also documented were hemorrhoids. No other findings were documented.
[2019-11-25] MEDS: SUCRALFATE 1 GM TABLET PO SCH ×2 (10:08→23:36)
[2019-11-25] MEDS: LINEZOLID 600 MG/300 ML RTUPB IV SCH (10:15)
[2019-11-25 12:38] LABS: INTERNATIONAL RATION (INR) 1.49; PROTHROMBIN TIME 18.2 SEC (11.4-15.4)
[2019-11-25] MEDS ORDERED: FENTANYL CITRATE INJ/PF 100 MCG/2 ML AMPUL ONE (12:45)
[2019-11-25] MEDS ORDERED: ONDANSETRON HCL INJ/PF 4 MG/2 ML SDV ONE (12:45)
[2019-11-25] MEDS ORDERED: DIPHENHYDRAMINE HCL 50 MG/ML VIAL ONE (12:45)
[2019-11-25] MEDS ORDERED: MIDAZOLAM 2 MG/2 ML INJ ONE (12:45)
[2019-11-25] MEDS ORDERED: FLUMAZENIL INJ 0.5 MG/5 ML VIAL ONE (12:46)
[2019-11-25] MEDS ORDERED: GLUCAGON,HUMAN RECOMB 1 MG INJ ONE (12:46)
[2019-11-25] MEDS ORDERED: EPINEPHRINE INJ 1 MG/10 ML DISP.SYRIN ONE (12:46)
[2019-11-25] MEDS ORDERED: NALOXONE HCL INJ/PF 0.4 MG/1 ML SDV ONE (12:46)
[2019-11-25] MEDS: NORMAL SALINE 500 ML with OCTREOTIDE ACETATE 500 MCG IV PRN ×2 (13:17)
--- NOTE | 2019-11-25 13:33 | PDOC PROGRESS REPORT ---
Subjective Progress Note for:: 11/25/19 Subjective:: JOSETTE EISENBERG is a 79 year old male past medical history of hypertension, atrial fibrillation on Coumadin, brought to ED by EMS after found in bathroom by family noted to be too weak to get up. Patient is stating that he has noted greenish stool for the last several months which has progressively getting darker and for the last 2 weeks he has noticed that his bowel movements are melanotic and also noted that he is getting progressively weak and in the last several days he has been having very low appetite, low p.o. intake, abdominal fullness, dry heaves and nausea. Patient is stating that today he was having dry heaves and felt like he was vomiting, went to the restroom and he felt dizzy and lightheaded and sat on the door and was feeling too weak to get up. Patient denies loss of consciousness or any trauma, and remembers everything pre-and post incident. In ED he was found to be hypotensive, tachycardic, with low hemoglobin supratherapeutic INR and guaiac positive stool. Hospital was consulted for admission. 11/24/2019. No acute events overnight. Follow-up hemoglobin noted to be dropping however patient has not had any bowel movement and I do not believe if he is acutely bleeding. Patient is stating that he is feeling weak otherwise denies any fever, chills, nausea, vomiting, diarrhea and urinary symptoms. Patient's upper GI endoscopy is on hold given his elevated INR. 11/25/2019. No acute events overnight. Patient comfortably sitting up in apparent distress, has not had any recurrence of his hemoptysis, last bowel movement yesterday, denies any fever, chills, nausea, vomiting, diarrhea, constipation or any urinary symptoms. Patient is scheduled for upper GI endoscopy today. Reason For Visit: UPPER GL BLEED, PRESYNCOPE, DEHYDRATION, ATRIAL Physical Exam Vital Signs: Temp Pulse Resp BP Pulse Ox 97.5 F 65 65 H 114/59 L 98 11/25/19 13:00 11/25/19 13:00 11/25/19 13:00 11/25/19 13:00 11/25/19 13:00 Intake & Output 11/24/19 11/25/19 11/26/19 06:59 06:59 06:59 Intake Total 4004 4628 763 Output Total 1060 700 Balance 2944 3928 763 Weight 108.8 kg 108.1 kg General appearance: PRESENT: no acute distress, well-developed, well-nourished Head exam: PRESENT: atraumatic, normocephalic Respiratory exam: PRESENT: clear to auscultation trent. ABSENT: rales, rhonchi, wheezes Cardiovascular exam: PRESENT: RRR. ABSENT: diastolic murmur, rubs, systolic murmur GI/Abdominal exam: PRESENT: normal bowel sounds, soft. ABSENT: distended, guarding, mass, organolmegaly, rebound, tenderness Neurological exam: PRESENT: alert, awake, oriented to person, oriented to place, oriented to time, oriented to situation, CN II-XII grossly intact. ABSENT: mo tor sensory deficit Results Laboratory Results: 11/24/19 21:57 11/24/19 04:43 11/23/19 11/24/19 11/24/19 09:45 17:36 21:57 WBC 12.4 H 10.6 H RBC 2.82 L 2.52 L Hgb 8.5 L 7.8 L Hct 24.7 L 22.1 L MCV 88 88 MCH 30.1 31.0 MCHC 34.3 35.3 RDW 15.0 H 15.0 H Plt Count 168 139 L Seg Neutrophils % Not Reportable Blood Type O POSITIVE Antibody Screen NEGATIVE 11/23/19 09:45 Blood Blood Culture (PCR) - Final Staphylococcus Species 11/23/19 09:45 Troponin I < 0.012 Impressions: Chest X-Ray 11/23/19 11:24 IMPRESSION: NO ACUTE RADIOGRAPHIC FINDING IN THE CHEST. Assessment and Plan - Diagnosis (1) Upper GI bleed Is this a current diagnosis for this admission?: Yes Plan: Denies any history of GI malignancy, GERD or gastric ulcers. Home medications are Coumadin and naproxen. This is likely due to Coumadin toxicity complicated by chronic NSAID use. Hemoglobin on admission 8.2. Hemoglobin has dropped to 7.3 this is likely due to hemodilution as he appeared to be very dehydrated on admission. Status post 4 PRBC transfusion on 11/23/2019. Received 10 mg of vitamin K on 11/23/2019. Status post 2 FFP transfusion. Scheduled for upper GI endoscopy today. As per surgery note patient has had recent colonoscopy which have been normal. Continue monitor H&H, volume resuscitation guided by volume status, hold anticoagulants, avoid NSAIDs, supportive transfusions, PT/INR (2) Anemia Qualifiers: Other causes of anemia: acute posthemorrhagic Is this a current diagnosis for this admission?: Yes Plan: Acute blood loss anemia most likely due to upper GI bleed. Plan of care as per #1. (3) Pre-syncope Is this a current diagnosis for this admission?: Yes Plan: Denies any palpitation, lightheadedness, dizziness or syncope since admission. Most likely due to severe anemia and volume depletion. Patient endorsing low p.o. intake and low appetite and progressive weakness for the last several days. Denies any chest pain, palpitation or any shortness of breath. Denies any loss of consciousness, any trauma or focal neurological deficits. Troponins negative. EKG no acute changes. Continue to telemetry, volume resuscitation, monitor vitals, fall, seizure and aspiration precautions. (4) Hypotension Qualifiers: Hypotension type: orthostatic hypotension Qualified Code(s): I95.1 - Orthostatic hypotension Is this a current diagnosis for this admission?: Yes Plan: Normotensive. Euvolemic. Orthostatic hypotension most likely due to low p.o. intake and volume depletion. Continue telemetry, volume resuscitation guided by volume status, monitor vitals. (5) Acute kidney injury superimposed on CKD Is this a current diagnosis for this admission?: Yes Plan: Improving. Prerenal. Most likely low p.o. intake complicated by NSAID use. Creatinine on admission 1.91. Baseline creatinine 1.3. Cautious volume resuscitation guided by volume status. Avoid nephrotoxic meds. Monitor electrolytes and volume status. Replace electrolytes as needed. BMP tomorrow. (6) Atrial fibrillation Qualifiers: Atrial fibrillation type: longstanding persistent Qualified Code(s): I48.11 - Longstanding persistent atrial fibrillation Is this a current diagnosis for this admission?: Yes Plan: Rate controlled. Not anticoagulated. History of chronic persistent A. fib. Anticoagulated with Coumadin. Hold anticoagulation due to acute GI bleed. Was started on low-dose beta-blockers however noted to become bradycardic. DC beta-blockers for right now. I have discussed risk and benefit of long-term anticoagulation with patient and his who both agreed to hold Coumadin until patient is discharged and seen by his PCP as outpatient. (7) Generalized weakness Is this a current diagnosis for this admission?: Yes Plan: Improving. Most likely due to anemia and low p.o. intake. Plan as per above. (8) Supratherapeutic INR Is this a current diagnosis for this admission?: Yes Plan: INR WNL today. INR on admission 5.71. Received 1 dose of vitamin K in the ED. Status post FFP transfusion. Continue monitor for bleeding. Daily INR. Hold anticoagulation. (9) Lactic acidosis Is this a current diagnosis for this admission?: Yes Plan: Resolved. ALT likely due to hypotension caused by low p.o. intake and GI bleed starvation ketosis No sign of active infection sepsis or SIRS. Continue volume resuscitation guided by volume status. Indication for IV antibiotics at this moment.
--- NOTE | 2019-11-25 13:57 | Operative Report ---
Nonrecallable Operative Report DATE OF SURGERY: 11/25/19 PREOPERATIVE DIAGNOSIS: GI bleeding POSTOPERATIVE DIAGNOSIS: Pyloric channel ulcers OPERATION: Esophagogastroduodenoscopy SURGEON: LUNA CARRASCO ANESTHESIA: Moderate Sedation TISSUE REMOVED OR ALTERED: None COMPLICATIONS: None ESTIMATED BLOOD LOSS: 0 INTRAOPERATIVE FINDINGS: 2 pyloric channel ulcers approximately 0.3 cm in diameter PROCEDURE: Procedure after appropriate timeout site verification the procedure commenced. Patient was placed in a left lateral decubitus position in the endoscopy suite. The Olympus gastroscope was passed in through the mouth traversed the upper esophageal sphincters into the proximal esophagus and then into the stomach. As we entered the stomach we noted some evidence of old digested blood and mild antral gastritis. As the scope then advanced was advanced to the antrum prior just prior to entering the pylorus there was 2.3 cm ulcers that were noted on the anterior lateral aspect of the distal antrum that were not bleeding. They had a clean ulcer bed. There was no visible vessel. The scope was then passed in through the pylorus into the proximal duodenum as we entered the proximal duodenum there was 2 small approximately 0.5 cm lipomatous lesions on the wall of the duodenum at the left side. Scope was then advanced to the second portion of duodenum that appeared to be normal we then slowly withdrew the scope again back into the antrum noting 2 small ulcers again no evidence of bleeding the scope was then retroflexed and there was no significant hiatal hernia. Scope was then slowly withdrawn into the esophagus distal esophagus appeared to be normal without evidence of significant esophagitis the scope was then slowly withdrawn. Findings 1. 2- 0.3 cm prepyloric ulcers not bleeding. 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 3. No active bleeding at this time. Recommendations Start the patient on Carafate suspension or tablets 1 p.o. every 8 hours along with proton pump inhibitor.
[2019-11-25] MEDS ORDERED: PANTOPRAZOLE SODIUM 40 MG TABLET.DR PO ONE (18:06)
[2019-11-25] MEDS: ATORVASTATIN CALCIUM 10 MG TABLET PO SCH (23:36)
[2019-11-26] MEDS: LINEZOLID 600 MG/300 ML RTUPB IV SCH ×3 (00:06→21:08)
[2019-11-26 05:24] LABS: ABSOLUTE BASOPHILS # (AUTO) 0.1 10^3/uL (0.0-0.2); ABSOLUTE EOSINOPHILS # (AUTO) 0.4 10^3/uL (0.0-0.6); ABSOLUTE LYMPHOCYTES (AUTO) 1.2 10^3/uL (0.5-4.7); ABSOLUTE MONOCYTES (AUTO) 0.5 10^3/uL (0.1-1.4); ABSOLUTE NEUT (AUTO) 4.4 10^3/uL (1.7-8.2); BASOPHILS % (AUTO) 0.8 % (0-2); EOSINOPHILS % (AUTO) 6.2 % (0-6); HEMATOCRIT 28.2 % (37.9-51.0); LYMPHOCYTES % (AUTO) 18.9 % (13-45); MEAN CORPUSCULAR HEMOGLOBIN 31.6 pg (27.0-33.4); MEAN CORPUSCULAR VOLUME 90 fl (80-97); MONOCYTES % (AUTO) 7.7 % (3-13); PLATELET COUNT 137 10^3/uL (150-450); RED BLOOD COUNT 3.13 10^6/uL (4.35-5.55); RED CELL DISTRIBUTION WIDTH 15.6 % (11.5-14.0); SEGMENTED NEUTROPHILS % (AUTO) 66.4 % (42-78); TOTAL CELLS COUNTED % (AUTO) 100 %; WHITE BLOOD COUNT 6.6 10^3/uL (4.0-10.5)
[2019-11-26] MEDS: SUCRALFATE 1 GM TABLET PO SCH ×4 (05:26→21:04)
[2019-11-26] MEDS: PANTOPRAZOLE SODIUM 40 MG TABLET.DR PO SCH ×2 (05:26→17:41)
[2019-11-26 05:33] LABS: HEMOGLOBIN 9.9 g/dL (13.5-17.0); INTERNATIONAL RATION (INR) 1.34; PROTHROMBIN TIME 16.7 SEC (11.4-15.4)
[2019-11-26 05:36] LABS: ANION GAP 5 (5-19); BLOOD UREA NITROGEN 33 mg/dL (7-20); CALCIUM 7.8 mg/dL (8.4-10.2); CARBON DIOXIDE 23 mmol/L (22-30); CHLORIDE 109 mmol/L (98-107); GLUCOSE 119 mg/dL (75-110); POTASSIUM 3.9 mmol/L (3.6-5.0)
[2019-11-26] MEDS ORDERED: FUROSEMIDE INJ/PF 20 MG/2 ML SDV ONE (08:12)
[2019-11-26] MEDS ORDERED: FUROSEMIDE INJ/PF 20 MG/2 ML SDV IV ONE (08:45)
--- NOTE | 2019-11-26 10:51 | PDOC PROGRESS REPORT ---
Subjective Progress Note for:: 11/26/19 Subjective:: JOSETTE EISENBERG is a 79 year old male past medical history of hypertension, atrial fibrillation on Coumadin, brought to ED by EMS after found in bathroom by family noted to be too weak to get up. Patient is stating that he has noted greenish stool for the last several months which has progressively getting darker and for the last 2 weeks he has noticed that his bowel movements are melanotic and also noted that he is getting progressively weak and in the last several days he has been having very low appetite, low p.o. intake, abdominal fullness, dry heaves and nausea. Patient is stating that today he was having dry heaves and felt like he was vomiting, went to the restroom and he felt dizzy and lightheaded and sat on the door and was feeling too weak to get up. Patient denies loss of consciousness or any trauma, and remembers everything pre-and post incident. In ED he was found to be hypotensive, tachycardic, with low hemoglobin supratherapeutic INR and guaiac positive stool. Hospital was consulted for admission. 11/24/2019. No acute events overnight. Follow-up hemoglobin noted to be dropping however patient has not had any bowel movement and I do not believe if he is acutely bleeding. Patient is stating that he is feeling weak otherwise denies any fever, chills, nausea, vomiting, diarrhea and urinary symptoms. Patient's upper GI endoscopy is on hold given his elevated INR. 11/25/2019. No acute events overnight. Patient comfortably sitting up in apparent distress, has not had any recurrence of his hemoptysis, last bowel movement yesterday, denies any fever, chills, nausea, vomiting, diarrhea, constipation or any urinary symptoms. Patient is scheduled for upper GI endoscopy today. 11/26/2019. Patient complaining of generalized weakness, shortness of breath, otherwise alert and oriented in no apparent distress, cooperative with physical examination, denies any nausea vomiting, has not had any bowel movement since yesterday, denies any fever, chest pain, abdominal pain, diarrhea or any urinary symptoms. Reason For Visit: UPPER GL BLEED, PRESYNCOPE, DEHYDRATION, ATRIAL Physical Exam Vital Signs: Temp Pulse Resp BP Pulse Ox 97.4 F 81 16 130/74 H 94 11/26/19 07:52 11/26/19 07:52 11/26/19 07:52 11/26/19 07:52 11/26/19 07:52 Intake & Output 11/25/19 11/26/19 11/27/19 06:59 06:59 06:59 Intake Total 4628 3780 Output Total 700 1790 Balance 3928 1989 Weight 108.1 kg 112.1 kg General appearance: PRESENT: no acute distress, well-developed, well-nourished Head exam: PRESENT: atraumatic, normocephalic Respiratory exam: PRESENT: clear to auscultation trent. ABSENT: rales, rhonchi, wheezes Cardiovascular exam: PRESENT: RRR. ABSENT: diastolic murmur, rubs, systolic murmur GI/Abdominal exam: PRESENT: normal bowel sounds, soft. ABSENT: distended, guarding, mass, organolmegaly, rebound, tenderness Neurological exam: PRESENT: alert, awake, oriented to person, oriented to place, oriented to time, oriented to situation, CN II-XII grossly intact. ABSENT: motor sensory deficit Results Laboratory Results: 11/26/19 04:55 11/26/19 04:55 11/23/19 11/26/19 11/26/19 09:45 04:55 04:55 WBC 6.6 RBC 3.13 L Hgb 9.9 L D Hct 28.2 L MCV 90 MCH 31.6 MCHC 35.0 RDW 15.6 H Plt Count 137 L Seg Neutrophils % 66.4 Sodium 136.9 L Potassium 3.9 Chloride 109 H Carbon Dioxide 23 Anion Gap 5 BUN 33 H Creatinine 1.42 H Est GFR ( Amer) 58 L Glucose 119 H Calcium 7.8 L Magnesium 2.0 Blood Type O POSITIVE Antibody Screen NEGATIVE 11/23/19 09:45 Blood Blood Culture (PCR) - Final Staphylococcus Species 11/23/19 09:45 Troponin I < 0.012 Impressions: Chest X-Ray 11/23/19 11:24 IMPRESSION: NO ACUTE RADIOGRAPHIC FINDING IN THE CHEST. Assessment and Plan - Diagnosis (1) Upper GI bleed Is this a current diagnosis for this admission?: Yes Plan: Resolved. Status post upper GI endoscopy positive for small prepyloric nonbleeding ulcers. Home medications are Coumadin and naproxen. Due to prepyloric ulcers complicated by Coumadin toxicity complicated by chronic NSAID use. Hemoglobin on admission 9.1 Hemoglobin has dropped to 7.3 this is likely due to hemodilution as he appeared to be very dehydrated on admission. Status post 4 PRBC transfusion on 11/23/2019. Received 10 mg of vitamin K on 11/23/2019. Status post 2 FFP transfusion. DC octreotide drip. DC PPI drip. Continue Carafate. Advance diet as tolerated. Continue p.o. PPI. Monitor H&H. Follow-up biopsy result. Will obtain stool H. pylori antigen. (2) Anemia Qualifiers: Other causes of anemia: acute posthemorrhagic Is this a current diagnosis for this admission?: Yes Plan: Acute blood loss anemia most likely due to upper GI bleed. Plan of care as per #1. (3) Pre-syncope Is this a current diagnosis for this admission?: Yes Plan: Denies any palpitation, lightheadedness, dizziness or syncope since admission. Most likely due to severe anemia and volume depletion. Patient endorsing low p.o. intake and low appetite and progressive weakness for the last several days. Denies any chest pain, palpitation or any shortness of breath. Denies any loss of consciousness, any trauma or focal neurological deficits. Troponins negative. EKG no acute changes. Continue to telemetry, volume resuscitation, monitor vitals, fall, seizure and aspiration precautions. (4) Hypotension Qualifiers: Hypotension type: orthostatic hypotension Qualified Code(s): I95.1 - O rthostatic hypotension Is this a current diagnosis for this admission?: Yes Plan: Normotensive. Euvolemic. Orthostatic hypotension most likely due to low p.o. intake and volume depletion. Continue telemetry, volume resuscitation guided by volume status, monitor vitals. (5) Acute kidney injury superimposed on CKD Is this a current diagnosis for this admission?: Yes Plan: Improving. Prerenal. Most likely low p.o. intake complicated by NSAID use. Creatinine on admission 1.91. Baseline creatinine 1.3. Cautious volume resuscitation guided by volume status. Avoid nephrotoxic meds. Monitor electrolytes and volume status. Replace electrolytes as needed. BMP tomorrow. (6) Atrial fibrillation Qualifiers: Atrial fibrillation type: longstanding persistent Qualified Code(s): I48.11 - Longstanding persistent atrial fibrillation Is this a current diagnosis for this admission?: Yes Plan: Rate controlled. Not anticoagulated. History of chronic persistent A. fib. was anticoagulated with Coumadin. Hold anticoagulation due to acute GI bleed. Was started on low-dose beta-blockers however noted to become bradycardic. DC beta-blockers for right now. I have discussed risk and benefit of long-term anticoagulation with patient and his who both agreed to hold Coumadin until patient is discharged and seen by his PCP as outpatient. (7) Generalized weakness Is this a current diagnosis for this admission?: Yes Plan: Improving. Most likely due to anemia and low p.o. intake. Plan as per above. (8) Supratherapeutic INR Is this a current diagnosis for this admission?: Yes Plan: INR WNL today. INR on admission 5.71. Received 1 dose of vitamin K in the ED. Status post FFP transfusion. Continue monitor for bleeding. Daily INR. Hold anticoagulation. (9) Lactic acidosis Is this a current diagnosis for this admission?: Yes Plan: Resolved. ALT likely due to hypotension caused by low p.o. intake and GI bleed starvation ketosis No sign of active infection sepsis or SIRS. Continue volume resuscitation guided by volume status. Indication for IV antibiotics at this moment.
[2019-11-26] MEDS: METOPROLOL TARTRATE 25 MG TABLET PO SCH (20:02)
[2019-11-26] MEDS: ATORVASTATIN CALCIUM 10 MG TABLET PO SCH (21:05)
[2019-11-27 04:45] LABS: HEMATOCRIT 28.7 % (37.9-51.0); HEMOGLOBIN 10.4 g/dL (13.5-17.0); MEAN CORPUSCULAR HEMOGLOBIN 32.6 pg (27.0-33.4); MEAN CORPUSCULAR HGB CONC 36.1 g/dL (32.0-36.0); MEAN CORPUSCULAR VOLUME 90 fl (80-97); PLATELET COUNT 151 10^3/uL (150-450); RED BLOOD COUNT 3.19 10^6/uL (4.35-5.55); RED CELL DISTRIBUTION WIDTH 16.1 % (11.5-14.0); WHITE BLOOD COUNT 5.8 10^3/uL (4.0-10.5)
[2019-11-27 05:04] LABS: ANION GAP 7 (5-19); BLOOD UREA NITROGEN 23 mg/dL (7-20); CALCIUM 7.9 mg/dL (8.4-10.2); CARBON DIOXIDE 25 mmol/L (22-30); CHLORIDE 104 mmol/L (98-107); GLUCOSE 105 mg/dL (75-110); POTASSIUM 3.7 mmol/L (3.6-5.0)
[2019-11-27] MEDS: SUCRALFATE 1 GM TABLET PO SCH (05:18)
[2019-11-27] MEDS: PANTOPRAZOLE SODIUM 40 MG TABLET.DR PO SCH (05:18)
[2019-11-27 10:49] VITALS: BP 104/50
--- NOTE | 2019-11-27 16:39 | PDOC DISCHARGE SUMMARY ---
Impression - Admit/DC Date/PCP Admission Date/Primary Care Provider: 11/23/19 13:05 NICHELLE VERMA MD Discharge Date: 11/27/19 - Discharge Diagnosis (1) Upper GI bleed Is this a current diagnosis for this admission?: Yes (2) Anemia Is this a current diagnosis for this admission?: Yes (3) Pre-syncope Is this a current diagnosis for this admission?: Yes (4) Hypotension Is this a current diagnosis for this admission?: Yes (5) Acute kidney injury superimposed on CKD Is this a current diagnosis for this admission?: Yes (6) Atrial fibrillation Is this a current diagnosis for this admission?: Yes (7) Generalized weakness Is this a current diagnosis for this admission?: Yes (8) Supratherapeutic INR Is this a current diagnosis for this admission?: Yes (9) Lactic acidosis Is this a current diagnosis for this admission?: Yes (10) Coagulase negative Staphylococcus bacteremia Is this a current diagnosis for this admission?: Yes - Additional Information Resuscitation Status: Full Code Discharge Diet: Cardiac Discharge Activity: Activity As Tolerated, Balance Activity w/Rest Referrals: NICHELLE VERMA MD [Primary Care Provider] - Follow up as needed Prescriptions: Losartan Potassium 100 mg PO DAILY 30 Days #30 tablet Amlodipine Besylate [Norvasc 2.5 mg Tablet] 2.5 mg PO DAILY 30 Days #30 tablet Pantoprazole Sodium 40 mg PO DAILY 7 Days #42 tablet. Home Medications: Atorvastatin Calcium [Lipitor 10 mg Tablet] 10 mg PO QHS 11/23/19 Amlodipine Besylate [Norvasc 2.5 mg Tablet] 2.5 mg PO DAILY 30 Days #30 tablet 11/27/19 Losartan Potassium 100 mg PO DAILY 30 Days #30 tablet 11/27/19 Pantoprazole Sodium 40 mg PO DAILY 7 Days #42 tablet. 11/27/19 History of Present Illiness History of Present Illness: JOSETTE EISENBERG is a 79 year old male past medical history of hypertension, atrial fibrillation on Coumadin, brought to ED by EMS after found in bathroom by family noted to be too weak to get up. Patient is stating that he has noted greenish stool for the last several months which has progressively getting darke r and for the last 2 weeks he has noticed that his bowel movements are melanotic and also noted that he is getting progressively weak and in the last several days he has been having very low appetite, low p.o. intake, abdominal fullness, dry heaves and nausea. Patient is stating that today he was having dry heaves and felt like he was vomiting, went to the restroom and he felt dizzy and lightheaded and sat on the door and was feeling too weak to get up. Patient denies loss of consciousness or any trauma, and remembers everything pre-and post incident. In ED he was found to be hypotensive, tachycardic, with low hemoglobin supratherapeutic INR and guaiac positive stool. Hospital was consulted for admission. Hospital Course Hospital Course: (1) Upper GI bleed Resolved. Status post upper GI endoscopy positive for small prepyloric nonbleeding ulcers. Home medications are Coumadin and naproxen. Due to prepyloric ulcers complicated by Coumadin toxicity complicated by chronic NSAID use. Hemoglobin on admission 10.4 on the day of discharge. Received 4 PRBC transfusion on 11/23/2019. Received 10 mg of vitamin K on 11/23/2019. Received 2 FFP transfusion. Was a started on octreotide drip and PPI drip. H. pylori antigen pending at the time of discharge. P.o. tolerant. Normal bowel movement. (2) Anemia Acute blood loss anemia most likely due to upper GI bleed. Plan of care as per #1. (3) Pre-syncope Denied any palpitation, lightheadedness, dizziness or syncope since admission. Most likely due to severe anemia and volume depletion. Patient endorsing low p.o. intake and low appetite and progressive weakness for the last several days. Denied any chest pain, palpitation or any shortness of breath. Denied any loss of consciousness, any trauma or focal neurological deficits. Troponins negative. EKG no acute changes. Admitted to telemetry, started on volume resuscitation, implemented fall, seizure and aspiration precautions. No events during hospitalization. seizure and aspiration precautions. (4) Hypotension Resolved. Normotensive. Euvolemic. Orthostatic hypotension most likely due to low p.o. intake and volume depletion. Admitted to telemetry, started on [place], monitored vitals. (5) Acute kidney injury superimposed on CKD Resolved. Back to baseline. Prerenal. Most likely low p.o. intake complicated by NSAID use. Creatinine on admission 1.91. Baseline creatinine 1.3. Was a started on volume resuscitation guided by volume status. Avoiding nephrotoxic meds. Advised to follow-up with PCP. (6) Atrial fibrillation Rate controlled. Not anticoagulated. History of chronic persistent A. fib. was anticoagulated with Coumadin. DC'd anticoagulation due to acute GI bleed. Was started on low-dose beta-blockers however noted to become bradycardic. DC'd beta-blockers and advised follow-up with PCP and cardiology. I have discussed risk and benefit of long-term anticoagulation with patient and his who both agreed to hold Coumadin until patient is discharged and seen by his PCP as outpatient. (7) Generalized weakness Moderate improvement. Most likely due to anemia and low p.o. intake. Plan as per above. (8) Supratherapeutic INR INR WNL at the time of discharge. Presented with INR of 5.71. Received 1 dose of vitamin K in the ED. Received 2 FFP's. (9) Lactic acidosis Resolved. ALT likely due to hypotension caused by low p.o. intake and GI bleed starvation ketosis No sign of active infection sepsis or SIRS. Started on volume resuscitation guided by volume status. (10) Coagulase negative Staphylococcus bacteremia 1/4 bottles positive for Staphylococcus hominis, likely contamination. Repeat blood cultures negative. Received 5 days of linezolid. Afebrile, WBC WNL at the time of discharge. No sign of active infection. Physical Exam Vital Signs: Temp Pulse Resp BP Pulse Ox 97.9 F 84 19 104/50 L 98 11/27/19 10:43 11/27/19 10:43 11/27/19 10:43 11/27/19 10:43 11/27/19 10:43 Intake & Output 11/26/19 11/27/19 11/28/19 06:59 06:59 06:59 Intake Total 3780 2386 Output Total 1790 2150 Balance 1989 Weight 112.1 kg 113 kg Results Laboratory Results: WBC 5.8 10^3/uL (4.0-10.5) 11/27/19 04:36 RBC 3.19 10^6/uL (4.35-5.55) L 11/27/19 04:36 Hgb 10.4 g/dL (13.5-17.0) L 11/27/19 04:36 Hct 28.7 % (37.9-51.0) L 11/27/19 04:36 MCV 90 fl (80-97) 11/27/19 04:36 MCH 32.6 pg (27.0-33.4) 11/27/19 04:36 MCHC 36.1 g/dL (32.0-36.0) H 11/27/19 04:36 RDW 16.1 % (11.5-14.0) H 11/27/19 04:36 Plt Count 151 10^3/uL (150-450) 11/27/19 04:36 Lymph % (Auto) 18.9 % (13-45) 11/26/19 04:55 [place] % (Auto) 7.7 % (3-13) 11/26/19 04:55 Eos % (Auto) 6.2 % (0-6) H 11/26/19 04:55 Baso % (Auto) 0.8 % (0-2) 11/26/19 04:55 Absolute Neuts (auto) 4.4 10^3/uL (1.7-8.2) 11/26/19 04:55 Absolute Lymphs (auto) 1.2 10^3/uL (0.5-4.7) 11/26/19 04:55 Absolute Monos (auto) 0.5 10^3/uL (0.1-1.4) 11/26/19 04:55 Absolute Eos (auto) 0.4 10^3/uL (0.0-0.6) 11/26/19 04:55 Absolute Basos (auto) 0.1 10^3/uL (0.0-0.2) 11/26/19 04:55 Total Counted 100 11/24/19 17:36 Seg Neutrophils % 66.4 % (42-78) 11/26/19 04:55 Seg Neuts % (Manual) 75 % (42-78) 11/24/19 17:36 Lymphocytes % (Manual) 14 % (13-45) 11/24/19 17:36 Monocytes % (Manual) 8 % (3-13) 11/24/19 17:36 Eosinophils % (Manual) 2 % (0-6) 11/24/19 17:36 Basophils % (Manual) 1 % (0-2) 11/24/19 17:36 Abs Neuts (Manual) 9.3 10^3/uL (1.7-8.2) H 11/24/19 17:36 Abs Lymphs (Manual) 1.7 10^3/uL (0.5-4.7) 11/24/19 17:36 Abs Monocytes (Manual) 1.0 10^3/uL (0.1-1.4) 11/24/19 17:36 Absolute Eos (Manual) 0.2 10^3/uL (0.0-0.6) 11/24/19 17:36 Abs Basophils (Manual) 0.1 10^3/uL (0.0-0.2) 11/24/19 17:36 Giant Platelets PRESENT 11/24/19 17:36 Platelet Comment ADEQUATE 11/24/19 17:36 Anisocytosis SLIGHT 11/24/19 17:36 PT 16.7 SEC (11.4-15.4) H 11/26/19 04:55 INR 1.34 11/26/19 04:55 INR (Anticoag Therapy) Cancelled 11/23/19 09:45 VBG pH 7.30 (7.30-7.42) 11/23/19 09:45 VBG pCO2 46.1 mmHg (35-63) 11/23/19 09:45 VBG HCO3 22.2 mmol/L (20-32) 11/23/19 09:45 VBG Base Excess -4.3 mmol/L 11/23/19 09:45 Sodium 136.0 mmol/L (137-145) L 11/27/19 04:36 Potassium 3.7 mmol/L (3.6-5.0) 11/27/19 04:36 Chloride 104 mmol/L (98-107) 11/27/19 04:36 Carbon Dioxide 25 mmol/L (22-30) 11/27/19 04:36 Anion Gap 7 (5-19) 11/27/19 04:36 BUN 23 mg/dL (7-20) H 11/27/19 04:36 Creatinine 1.31 mg/dL (0.52-1.25) H 11/27/19 04:36 Est GFR ( Amer) > 60 (>60) 11/27/19 04:36 Est GFR (MDRD) Non-Af 53 (>60) L 11/27/19 04:36 Glucose 105 mg/dL (75-110) 11/27/19 04:36 Lactic Acid 1.8 mmol/L (0.7-2.1) 11/23/19 16:14 Calcium 7.9 mg/dL (8.4-10.2) L 11/27/19 04:36 Magnesium 2.0 mg/dL (1.6-2.3) 11/26/19 04:55 Total Bilirubin 2.0 mg/dL (0.2-1.3) H 11/24/19 04:43 Direct Bilirubin 0.1 mg/dL (0.0-0.4) 11/24/19 04:43 Neonat Total Bilirubin Not Reportable 11/24/19 04:43 Neonat Direct Bilirubin Not Reportable 11/24/19 04:43 Neonat Indirect Bili Not Reportable 11/24/19 04:43 AST 14 U/L (17-59) L 11/24/19 04:43 ALT 9 U/L (<50) 11/24/19 04:43 Alkaline Phosphatase 26 U/L (38-126) L 11/24/19 04:43 Troponin I < 0.012 ng/mL 11/23/19 09:45 Total Protein 4.3 g/dL (6.3-8.2) L 11/24/19 04:43 Albumin 2.3 g/dL (3.5-5.0) L 11/24/19 04:43 POC Stool Occult Blood POSITIVE (NEGATIVE) 11/23/19 09:53 Blood Type O POSITIVE 11/23/19 09:45 Blood Type Confirm O POSITIVE 11/23/19 17:11 Antibody Screen NEGATIVE 11/23/19 09:45 Crossmatch See Detail 11/23/19 09:45 11/23/19 09:45 Troponin I < 0.012 Impressions: Chest X-Ray 11/23/19 11:24 IMPRESSION: NO ACUTE RADIOGRAPHIC FINDING IN THE CHEST. Stroke Is this a Stroke Patient?: No Acute Heart Failure - Is this a Heart Failure Patient?: No
== END 2019-11-27 11:30 | disposition home or self-care (01) | DRG 378 ==
LOC: ER 09:38 → EH 13:05 → 3W 22:40
PROVIDERS: ADMIT Internal Medicine; ATTEND Internal Medicine
PROC: 30233N1 Transfusion of Nonautologous Red Blood Cells into Peripheral Vein, Percutaneous Approach (ICD-10-PCS; 2019-11-23)
PROC: 30233K1 Transfusion of Nonautologous Frozen Plasma into Peripheral Vein, Percutaneous Approach (ICD-10-PCS; 2019-11-24)
PROC: 30233N1 Transfusion of Nonautologous Red Blood Cells into Peripheral Vein, Percutaneous Approach (ICD-10-PCS; 2019-11-24)
PROC: 30233K1 Transfusion of Nonautologous Frozen Plasma into Peripheral Vein, Percutaneous Approach (ICD-10-PCS; 2019-11-25)
PROC: 30233N1 Transfusion of Nonautologous Red Blood Cells into Peripheral Vein, Percutaneous Approach (ICD-10-PCS; 2019-11-25)
PROC: 0DJ08ZZ Inspection of Upper Intestinal Tract, Via Natural or Artificial Opening Endoscopic (ICD-10-PCS; principal; 2019-11-25 13:15)
DX: K25.4 Chronic or unspecified gastric ulcer with hemorrhage (principal); N17.9 Acute kidney failure, unspecified; E87.2 Acidosis; I48.11 Longstanding persistent atrial fibrillation; D62 Acute posthemorrhagic anemia; D17.79 Benign lipomatous neoplasm of other sites; E86.0 Dehydration; N18.9 Chronic kidney disease, unspecified; R79.1 Abnormal coagulation profile; I12.9 Hypertensive chronic kidney disease with stage 1 through stage 4 chronic kidney disease, or unspecified chronic kidney disease; T45.515A Adverse effect of anticoagulants, initial encounter; I95.1 Orthostatic hypotension; M17.0 Bilateral primary osteoarthritis of knee; M19.042 Primary osteoarthritis, left hand; M19.041 Primary osteoarthritis, right hand; M54.9 Dorsalgia, unspecified; E66.9 Obesity, unspecified; Z79.01 Long term (current) use of anticoagulants; Z86.010 Personal history of colon polyps; Z68.37 Body mass index [BMI] 37.0-37.9, adult
CPT/HCPCS: 36415; 36430; 43235; 71045; 80048; 80053; 82803; 83605; 83735; 84484; 85025; 85027; 85610; 86850; 86900; 86901; 86920; 87040; 87077; 87150; 87186; 87338; 93005; 93010; 96372; 96374; 99291; C9113; J0171; J1200; J1610; J1940; J2020; J2250; J2310; J2354; J2405; J3010; J3430; J3490; J7030; J7040; J7042; J7050; J7620; P9016; P9017